=== PATIENT | male | born 1960 | race Caucasian/White ===

== ENCOUNTER 2016-07-23 19:25 | Emergency (ER) | payer OTHER ==
[~2016-07-23] VITALS: Ht 167.6 cm; Wt 80.0 kg
[2016-07-23 19:45] VITALS: Ht 167.6 cm; Wt 80.0 kg
[2016-07-23] MEDS ORDERED: KETOROLAC 15 MG INJ IM STA (21:41)
[2016-07-23 21:48] LABS: URINE BLOOD (Dip) POC Trace-intact (NEGATIVE)
[2016-07-23] MEDS ORDERED: DIAZEPAM 5 MG TAB PO ONE (22:00)
--- NOTE | 2016-07-23 23:21 | ERD ---
ER Documentation Chief Complaint Date/Time DATE: 07/23/16 TIME: 23:16 Chief Complaint left flank pain x 3 days HPI Pleasant 55-year-old, Arabic-speaking, male patient presenting to emergency department with complaints of left lumbar pain radiating to left abdomen. Pain started 3 days ago is described as throbbing. Patient states pain is 7/10 on pain scale, denies any injury, denies nausea vomiting fever chills, denies dysuria or alteration in bowel or bladder, denies difficulty ambulating. Past medical history includes a right inguinal hernia repair. Patient denies any history of GERD or heartburn. Denies any history of nephrolithiasis or diverticulitis. ROS All systems reviewed and are negative except as per history of present illness. Medications Home Meds Active Scripts Diazepam* (Valium*) 5 Mg Tablet, 5 MG PO Q8, #10 TAB Prov:MARKUS,AZAR 07/23/16 Ibuprofen* (Motrin*) 600 Mg Tab, 600 MG PO Q6, #30 TAB Prov:MARKUS,AZAR 07/23/16 Allergies Allergies: Coded Allergies: No Known Drug Allergies (Verified Allergy, Unknown, 07/23/16) PMhx/Soc History of Surgery: Yes (abdominal hernia 15 y ago) Anesthesia Reaction: No Hx Neurological Disorder: No Hx Respiratory Disorders: No Hx Cardiac Disorders: No Hx Psychiatric Problems: No Hx Miscellaneous Medical Probl: No Hx Alcohol Use: No Hx Substance Use: No Hx Tobacco Use: No Smoking Status: Never smoker Physical Exam Vitals Vital Signs Date Time Temp Pulse Resp B/P Pulse Ox O2 Delivery O2 Flow Rate FiO2 07/23/16 23:32 98.7 62 18 120/79 99 Room Air 07/23/16 19:45 97.0 73 20 125/62 98 Vitals stable, triage notes reviewed Physical Exam Const: [] Head: Atraumatic Eyes: Normal Conjunctiva ENT: Normal External Ears, Nose and Mouth. Neck: Full range of motion..~ No meningismus. Resp: Clear to auscultation bilaterally Cardio: Regular rate and rhythm, no murmurs Abd: Soft, non tender, non distended. Normal bowel sounds Skin: No petechiae or rashes Back: No midline or flank tenderness Ext: No cyanosis, or edema Neur: Awake and alert Psych: Normal Mood and Affect Results 24 hrs Laboratory Tests Test 07/23/16 21:47 Bedside Urine pH (LAB) 7.0 Bedside Urine Protein (LAB) Negative Bedside Urine Glucose (UA) 0.1% Bedside Urine Ketones (LAB) Negative Bedside Urine Blood Trace-intact Bedside Urine Nitrite (LAB) Negative Bedside Urine Leukocyte Esterase (L Negative Current Medications Medications (Trade) Dose Ordered Sig/Alena Route PRN Reason Start Time Stop Time Status Last Admin Dose Admin Ketorolac Tromethamine (Toradol) 15 mg ONCE STAT IM 07/23/16 21:41 07/23/16 21:44 DC 07/23/16 21:50 Diazepam (Valium) 5 mg ONCE ONCE PO 07/23/16 22:00 07/23/16 22:01 DC 07/23/16 21:50 Interpretation text Trace microscopic hematuria, this can be a normal finding or suggestive of nephrolithiasis plan to treat with fluids and pain control. Procedures/MDM This pleasant 55-year-old male patient presenting to emergency department with left flank pain radiating to abdomen, pain is throbbing, 7/10 on pain scale. Patient denies any history of injury, patient responded to treatment with Toradol and Valium decreasing to less than 5/10 on pain scale urinalysis positive for trace microscopic hematuria. Findings can be consistent with nephrolithiasis. Patient denies any nausea or vomiting, denies difficulty with urinary output, denies problems initiating urine stream, denies dribbling after straining. Patient denies hematuria or fever. I feel patient is an appropriate candidate for outpatient treatment and follow-up with primary care physician. I feel the patient is stable for discharge at this time. I have discussed results, examination findings, the treatment plan with the patient and family present prior to discharge. Indications for emergent reevaluation, side effects of medication were also discussed. All questions were answered. Patient verbalizes understanding and agrees with plan of care. Departure Diagnosis: Primary Impression: Flank pain Condition: Good Patient Instructions: Flank Pain, Uncertain Cause [facility] Additional Instructions: Thank you for for coming to [facility] for your care today. Please ask your nurse or provider if you have questions about your care today and do not leave until all your questions have been answered. Please use any medications given as directed and follow-up with your doctor (or the doctor you were referred to) in the next 2-3 days. If you do not have a primary care doctor you may follow up at the [facility] (listed below). You may also use motrin and tylenol as needed for fever and/or pain unless instructed otherwise by your provider or nurse. Indications for more urgent follow-up have been discussed, but you may return to the Emergency Department at ANY time for any worrisome or worsening symptoms. If you have abdominal pain, please know that no test or exam you received is perfect and you should follow up within 8 hours for continued pain. If you had any imaging studies today, such as an X-Ray or CT Scan, these studies will be reviewed later by a radiologist. You will be called if there are important findings that were not identified today, so make sure the contact information you provided at registration is correct. If you received any narcotic pain control medicine today, such as Vicodin, Morphine or Dilaudid, your coordination and judgment may be affected for a number of hours. Please do not drive or operate heavy machinery, and you may want someone to assist you at home. If you were given a prescription for narcotic medication, be aware that it is very addictive- use sparingly and only if necessary. AZAR APARICIO Jul 23, 2016 23:21
[2016-07-23] MEDS ORDERED: IBUP-1542 PO (23:22)
[2016-07-23] MEDS ORDERED: DIAZ-90 PO (23:22)
[2016-07-23 23:32] VITALS: BP 120/79; PULSE 62; RESP 18; TEMP 98.7
== END 2016-07-23 23:30 | disposition home or self-care (01) ==
LOC: FTE 19:25
DX: R10.9 Unspecified abdominal pain (principal)
CPT/HCPCS: 81003; 96372; J1885; Z7502; Z7610

== ENCOUNTER 2017-03-17 21:25 | Emergency (ER) | payer OTHER ==
[~2017-03-17] VITALS: Ht 167.6 cm; Wt 76.8 kg
[~2017-03-17 21:25] MED LIST: DIAZ-90 PO; IBUP-1542 PO
[2017-03-17 21:30] VITALS: Ht 167.6 cm; Wt 76.8 kg
--- NOTE | 2017-03-17 23:51 | ERD ---
ER Documentation Chief Complaint Chief Complaint vomiting x 1 day, denies abd pain HPI 56-year-old male who presents emergency department for vomiting for 1 day. Stated that he has dizziness and he feels like his surroundings moving this morning. Denies headache, head injury, throat pain, difficulty swallowing, neck pain, neck stiffness, shoulder pain, chest pain, back pain, abdominal pain, vomiting, constipation, diarrhea, urinary symptoms, loss of bowel bladder control, recent long travel, recent exposure to any illness, changes in bowel and bladder habits , difficulty walking, numbness or tingling sensation, unilateral weakness, fever , chills. No known drug allergies. Past medical history of diabetes, hyperlipidemia. Surgery: Hernia surgery. Medication: Metformin. 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 Denies smoking, use of alcoholic beverages, use of illegal drugs. ROS All systems reviewed and are negative except as per history of present illness. Medications Home Meds Active Scripts Famotidine* (Pepcid*) 20 Mg Tablet, 20 MG PO DAILY for 30 Days, TAB Prov:KATHEILAJENNIFERMONIQUE F 03/18/17 Ondansetron Hcl* (Zofran*) 4 Mg Tablet, 4 MG PO Q8H Y for NAUSEA AND/OR VOMITING , #30 TAB Prov:KATHEILABANGAVINAR F 03/18/17 Acetaminophen* (Tylophen*) 500 Mg Capsule, 1 CAP PO Q6H Y for PAIN AND OR ELEVATED TEMP, #20 CAP Prov:PASILABAN,GAVINAR F 03/18/17 Diazepam* (Valium*) 5 Mg Tablet, 5 MG PO Q8, #10 TAB Prov:MARKUS,AZAR 07/23/16 Ibuprofen* (Motrin*) 600 Mg Tab, 600 MG PO Q6, #30 TAB Prov:MARKUS,AZAR 07/23/16 Allergies Allergies: Coded Allergies: No Known Drug Allergies (Verified Allergy, Unknown, 03/17/17) PMhx/Soc History of Surgery: Yes (abdominal hernia 15 y ago) Anesthesia Reaction: No Hx Neurological Disorder: No Hx Respiratory Disorders: No Hx Cardiac Disorders: No Hx Psychiatric Problems: No Hx Miscellaneous Medical Probl: Yes (DM) Hx Alcohol Use: No Hx Substance Use: No Hx Tobacco Use: No Smoking Status: Never smoker Physical Exam Vitals Vital Signs Date Time Temp Pulse Resp B/P Pulse Ox O2 Delivery O2 Flow Rate FiO2 03/18/17 02:48 98.0 83 18 129/81 100 Room Air 03/17/17 21:30 97.0 81 20 125/75 97 Physical Exam Const: [] Head: Atraumatic Eyes: Normal Conjunctiva ENT: Normal External Ears, Nose and Mouth. Neck: Full range of motion..~ No meningismus. Resp: Clear to auscultation bilaterally Cardio: Regular rate and rhythm, no murmurs Abd: Soft, non distended. Normal bowel sounds. Right upper abdominal tenderness and light and deep palpation during inspiration. Skin: No petechiae or rashes Back: No midline or flank tenderness Ext: No cyanosis, or edema Neur: Awake and alert Psych: Normal Mood and Affect Result Diagram: 03/17/17235403/17/172354 Results 24 hrs Laboratory Tests Test 03/17/17 23:48 03/17/17 23:55 Urine Color YELLOW Urine Clarity CLEAR Urine pH 7.0 Urine Specific Stearns 1.026 Urine Ketones 1+mg/dL Urine Nitrite NEGATIVEmg/dL Urine Bilirubin NEGATIVEmg/dL Urine Urobilinogen NEGATIVEmg/dL Urine Leukocyte Esterase NEGATIVELeu/ul Urine Microscopic RBC 5/HPF Urine Microscopic WBC 3/HPF Urine Renal Epithelial Cells FEW/HPF Urine Mucus MANY/HPF Urine Hemoglobin NEGATIVEmg/dL Urine Glucose NEGATIVEmg/dL Urine Total Protein 1+mg/dl White Blood Count 7.610^3/ul Red Blood Count 4.8810^6/ul Hemoglobin 14.5g/dl Hematocrit 42.9% Mean Corpuscular Volume 87.9fl Mean Corpuscular Hemoglobin 29.7pg Mean Corpuscular Hemoglobin Concent 33.8g/dl Red Cell Distribution Width 12.1% Platelet Count 41250^3/UL Mean Platelet Volume 10.7fl Neutrophils % 82.5% Lymphocytes % 13.7% Monocytes % 2.7% Eosinophils % 0.4% Basophils % 0.4% Nucleated Red Blood Cells % 0.0/100WBC Neutrophils # 6.310^3/ul Lymphocytes # 1.110^3/ul Monocytes # 0.210^3/ul Eosinophils # 0.010^3/ul Basophils # 0.010^3/ul Nucleated Red Blood Cells # 0.010^3/ul Prothrombin Time 14.1Sec Prothrombin Time Ratio 1.1 INR International Normalized Ratio 1.09 Activated Partial Thromboplast Time 26.7Sec Sodium Level 143mmol/L Potassium Level 4.2mmol/L Chloride Level 104mmol/L Carbon Dioxide Level 29mmol/L Anion Gap 14 Blood Urea Nitrogen 13mg/dl Creatinine 0.80mg/dl Glucose Level 144mg/dl Calcium Level 9.6mg/dl Total Bilirubin 0.5mg/dl Direct Bilirubin 0.00mg/dl Indirect Bilirubin 0.5mg/dl Aspartate Amino Transf (AST/SGOT) 29IU/L Alanine Aminotransferase (ALT/SGPT) 41IU/L Alkaline Phosphatase 61IU/L Troponin I < 0.012ng/ml Total Protein 7.9g/dl Albumin 4.4g/dl Globulin 3.50g/dl Albumin/Globulin Ratio 1.25 Amylase Level 71U/L Lipase 45U/L Current Medications Medications (Trade) Dose Ordered Sig/Alena Route PRN Reason Start Time Stop Time Status Last Admin Dose Admin Meclizine HCl (Antivert) 25 mg ONCE ONCE PO 03/18/17 00:00 03/18/17 00:01 DC 03/17/17 23:49 Ondansetron HCl (Zofran Odt) 4 mg ONCE STAT ODT 03/18/17 00:07 03/18/17 00:09 DC Ondansetron HCl 4 mg 4 mg ONCE STAT IV 03/18/17 00:25 03/18/17 00:28 DC 03/18/17 00:34 Sodium Chloride (NS) 1,000 ml @ 1,000 mls/hr Q1H ONCE IV 03/18/17 00:30 03/18/17 01:29 DC 03/18/17 00:34 IV Flush 10 ml 10 ml STK-MED ONCE .ROUTE 03/18/17 01:07 03/18/17 01:08 DC 03/18/17 01:16 Sodium Chloride (NS) 100 ml @ ud STK-MED ONCE .ROUTE 03/18/17 01:07 03/18/17 01:08 DC 03/18/17 01:16 Iohexol (Omnipaque 300mg/ ml) 150 ml STK-MED ONCE .ROUTE 03/18/17 01:07 03/18/17 01:08 DC 03/18/17 01:16 Procedures/MDM 56-year-old male who presents emergency department for vomiting for 1 day. Stated that he has dizziness and he feels like his surroundings moving this morning. Denies headache, head injury, throat pain, difficulty swallowing, neck pain, neck stiffness, shoulder pain, chest pain, back pain, abdominal pain, vomiting, constipation, diarrhea, urinary symptoms, loss of bowel bladder control, recent long travel, recent exposure to any illness, changes in bowel and bladder habits , difficulty walking, numbness or tingling sensation, unilateral weakness, fever , chills. No known drug allergies. Past medical history of diabetes, hyperlipidemia. Surgery: Hernia surgery. Medication: Metformin. 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 Denies smoking, use of alcoholic beverages, use of illegal drugs. Physical exam: Unremarkable. Romberg test negative. Cranial nerves II through XII are intact. Active bowel sounds. There is no left upper/left lower abdominal tenderness and light and deep palpation. Negative on Rovsing sign. Negative on psoas sign. Negative on Adrian sign. Able to jump 3 times without developing abdominal pain. No CVA tenderness. Ambulatory with steady gait and without difficulty and without pain to abdomen. No neurovascular deficits. Patient and family member agreed with the diagnostic test, treatment, plan of care. EKG: Normal sinus rhythm with a ventricular rate of 70 bpm. No STEMI. Read by supervising emergency room physician, Dr. Manish Trent. Blood works: Reviewed. Urinalysis: Reviewed. Abdominal ultrasound/right upper quadrant: No ultrasound evidence for cholelithiasis, cholecystitis or biliary obstruction. Pancreas obscured by bowel gas. Echogenic nonshadowing focus within the right kidney, possibly an incidental artifact from vascular interface versus small angiomyolipoma. CT of the abdomen and pelvis with IV contrast: Hepatic steatosis. Mild small bowel and colonic thickening suggestive of enterocolitis without obstruction. No CT evidence for appendicitis. Mildly prominent heterogenous prostate. L4-5 spondylolisthesis (20%). Recent diagnostic test results was discussed with supervising emergency room physician, Dr. Manish Trent who agreed with my medical decision making to discharge patient and have the patient follow-up with his primary care physician in the next 24-48 hours. Treatment: Antivert. Zofran. P.o. challenge. IV insertion. Zofran IV. Normal saline IV. Reevaluation: Denies headache, dizziness, blurred vision, neck pain, shoulder pain, chest pain, abdominal pain, nausea, vomiting. No episode of emesis here in the emergency department. There is no right upper/right lower/epigastric/ left upper/left lower abdominal tenderness and light and deep palpation. Negative on Rovsing sign. Negative Adrian sign. Negative and psoas sign. No CVA tenderness. Ambulatory with steady gait and without difficulty and without abdominal pain. No neurological deficits. Differential diagnosis: Stroke versus subarachnoid hemorrhage versus DKA versus vertigo versus cholecystitis versus pancreatitis versus dizziness versus viral syndrome versus UTI Final diagnosis: Gastroenteritis. Prescription: Tylenol. Pepcid. Zofran. Follow-up with primary care physician the next 24-48 hours. PCP to refer patient to neurologist if symptoms persist in the next 24-48 hours. Come back in the emergency department for any new symptoms or any worsening symptoms. All questions and concerns are answered. Patient and family member verbalized understanding and agreed with the plan of care. Hemodynamically stable on discharge. Departure Diagnosis: Primary Impression: Gastroenteritis Condition: Stable Additional Instructions: Follow-up with primary care physician the next 24-48 hours. PCP to refer patient to neurologist if symptoms persist in the next 24-48 hours. Come back in the emergency department for any new symptoms or any worsening symptoms. All questions and concerns are answered. Patient and family member verbalized understanding and agreed with the plan of care. MONIQUE GARCIA Mar 17, 2017 23:51
[2017-03-18] MEDS ORDERED: MECLIZINE 12.5 MG TAB PO ONE
[2017-03-18] MEDS ORDERED: ONDANSETRON (ODT) 4 MG TAB ODT STA (00:07)
[2017-03-18 00:09] LABS: BASOPHILS % 0.4 % (0.0-2.0); EOSINOPHILS % 0.4 % (0.0-7.0); HEMATOCRIT 42.9 % (42.0-52.0); HEMOGLOBIN 14.5 g/dl (14.0-18.0); LYMPHOCYTES # 1.1 10^3/ul (0.8-2.9); LYMPHOCYTES % 13.7 % (15.0-51.0); MEAN CORPUSCULAR HEMOGLOBIN 29.7 pg (29.0-33.0); MEAN CORPUSCULAR HGB CONC 33.8 g/dl (32.0-37.0); MEAN CORPUSCULAR VOLUME 87.9 fl (82.0-101.0); MEAN PLATELET VOLUME 10.7 fl (7.4-10.4); MONOCYTE # 0.2 10^3/ul (0.3-0.9); MONOCYTES % 2.7 % (0.0-11.0); NEUTROPHIL # 6.3 10^3/ul (1.6-7.5); NEUTROPHILS % 82.5 % (39.0-77.0); PLATELET COUNT 172 10^3/UL (140-415); RED BLOOD COUNT 4.88 10^6/ul (4.70-6.10); RED CELL DISTRIBUTION WIDTH 12.1 % (11.5-14.5); WHITE BLOOD COUNT 7.6 10^3/ul (4.8-10.8)
[2017-03-18 00:25] LABS: ALANINE AMINOTRANSFERASE 41 IU/L (13-69); ALBUMIN 4.4 g/dl (3.3-4.9); ALBUMIN/GLOBULIN RATIO 1.25; ALKALINE PHOSPHATASE 61 IU/L (42-121); AMYLASE 71 U/L (11-123); ANION GAP 14 (8-16); ASPARTATE AMINO TRANSFERASE 29 IU/L (15-46); BILIRUBIN,INDIRECT 0.5 mg/dl (0-1.1); BILIRUBIN,TOTAL 0.5 mg/dl (0.2-1.3); BLOOD UREA NITROGEN 13 mg/dl (7-20); CALCIUM 9.6 mg/dl (8.4-10.2); CARBON DIOXIDE 29 mmol/L (21-31); CHLORIDE 104 mmol/L (97-110); GLUCOSE 144 mg/dl (70-220); POTASSIUM 4.2 mmol/L (3.5-5.1); SODIUM 143 mmol/L (135-144); TOTAL PROTEIN 7.9 g/dl (6.1-8.1)
[2017-03-18] MEDS ORDERED: ONDANSETRON 4 MG INJ IV STA (00:25)
[2017-03-18] MEDS ORDERED: SOD CHLORIDE 0.9% 1,000 ML IV ONE (00:30)
[2017-03-18 00:31] LABS: ADD UMIC YES; UR ASCORBIC ACID NEGATIVE (NEGATIVE); UR BILIRUBIN (Dip) NEGATIVE (NEGATIVE); UR BLOOD (Dip) NEGATIVE (NEGATIVE); UR CLARITY CLEAR (CLEAR); UR COLOR YELLOW (YELLOW); UR GLUCOSE (Dip) NEGATIVE (NEGATIVE); UR KETONES (Dip) 1+ mg/dL (NEGATIVE); UR LEUKOCYTE ESTERASE (Dip) NEGATIVE Leu/ul (NEGATIVE); UR MUCUS MANY /HPF (NONE SEEN); UR NITRITE (Dip) NEGATIVE (NEGATIVE); UR RBC 5 /HPF (0-5); UR RENAL EPITHELIAL CELL FEW /HPF (NONE SEEN); UR SPECIFIC GRAVITY (Dip) 1.026 (1.003-1.030); UR TOTAL PROTEIN (Dip) 1+ mg/dl (NEGATIVE); UR UROBILINOGEN (Dip) NEGATIVE (NEGATIVE)
[2017-03-18 00:39] LABS: INR 1.09; PROTIME 14.1 Sec (12.2-14.2); PT RATIO 1.1
[2017-03-18 00:40] LABS: PARTIAL THROMBOPLASTIN TIME 26.7 Sec (25.0-35.0)
[2017-03-18 01:05] LABS: TROPONIN-I < 0.012 ng/ml (0.00-0.12)
[2017-03-18] MEDS ORDERED: SOD CHLORIDE 0.9% 100 ML ONE (01:07)
[2017-03-18] MEDS ORDERED: IOHEXOL 300MG/ML 150 ML BTL ONE (01:07)
--- NOTE | 2017-03-18 01:40 | RADRPT ---
PROCEDURE: US Abdomen (right upper quadrant). CLINICAL INDICATION: Pain. TECHNIQUE: Multiple real-time longitudinal and transverse images of the right upper quadrant of th e abdomen were acquired utilizing a curved array transducer. Images were reviewed on a high-resoluti on PACS workstation. COMPARISON: None FINDINGS: The liver is normal in size and echogencity. There is no focal intrahepatic mass.. The gallbladder is normal. There is no pericholecystic fluid or gallbladder wall thickening or gallstones. No intr a or extrahepatic biliary dilatation is seen. The common bile duct measures 3.2 mm in maximal dimen doris. Pancreas is obscured by bowel gas.. No free fluid is identified. The right kidney measures 11.2 cm in length. Overall renal cortical echogenicity is within normal l imits.. There is a 2 mm nonshadowing echogenic focus in the midpole of the right kidney, possibly a small angiomyolipoma versus vascular interface. There is no perinephric fluid collection. No hydro nephrosis, mass, or calculus is seen. IMPRESSION: 1. No ultrasound evidence for cholelithiasis, cholecystitis or biliary obstruction. 2. Pancreas obscured by bowel gas. 3. Echogenic nonshadowing focus within the right kidney, possibly an incidental artifact from vascu lar interface versus small angiomyolipoma. RPTAT: HMVK .Wesley Maldonado MD, MD Date Time Electronically viewed and signed by .Wesley Maldonado MD, MD on 03/18/2017 01:40 .K/
--- NOTE | 2017-03-18 02:03 | RADRPT ---
PROCEDURE: CT ABDOMEN/PELVIS WITH CONTRAST CLINICAL INDICATION: 56-year-old male with abdominal pain. TECHNIQUE: The study was performed utilizing a [employer] VCT 64-slice CT scanner. Direct axia l sections were obtained through the abdomen and pelvis with the use of 100 cc of Omnipaque-300 bryan onic intravenous contrast material. Sagittal and coronal reformations were obtained. One or more of the following dose reduction techniques were utilized: automated exposure control, adjustment of the mA and/or kV according to patient's size and/or use of iterative reconstruction technique. DICOM im ages are available. The images were reviewed on a PACS workstation. CTD/vol = 10.6 mGy; Total Exam DLP = 631.7 mGy-cm. COMPARISON: Right upper quadrant ultrasound March 18, 2017. FINDINGS: The lung bases are unremarkable. There is no evidence for significant pleural effusion. The liver has a normal size and contour. There is mild diffuse decreased density throughout the liver consiste nt with fatty infiltration but without focal areas of abnormal density or contrast enhancement. Ther e is a small calcific density adjacent to the periphery of the inferior right lobe of the liver on a xial image 3-44 measuring 7 x 5 mm. No intrahepatic nor extrahepatic biliary ductal dilatation is se en. The gallbladder demonstrates no wall thickening nor pericholecystic fluid. No biliary stones are evident. The pancreas is without areas of abnormal attenuation or contrast enhancement. This splee n is identified and has a normal size without abnormal density or contrast enhancement. The adrenal glands are unremarkable. The kidneys are functional bilaterally without abnormal density. No hydrour eteronephrosis nor nephroureterolithiasis is evident. The urinary bladder contains urine. There is mild thickening of the small bowel without obstruction. There is mild thickening of the transverse, descending and sigmoid colon without obstruction. The appendix is visualized and is without edema o r surrounding inflammatory reaction. The prostate is mildly prominent and heterogeneous measuring ap proximately 4.8 x 4.2 x 4.3 cm. There is no significant free fluid. The aortoiliac vessels are with out aneurysmal dilatation. 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 There is anterolist hesis of L4-L5 of approximately 20% with a vacuum disc, diffuse disc bulge and at least moderate dereje ateral foraminal stenosis. IMPRESSION: 1. Hepatic steatosis. 2. Mild small bowel and colonic thickening suggestive of enterocolitis without obstruction. 3. No CT evidence for appendicitis. 4. Mildly prominent heterogeneous prostate. 5. L4-5 spondylolisthesis (20%). .Angel Haas MD, Date Time Electronically viewed and signed by .Angel Haas MD, on 03/18/2017 02:03 .M/
[2017-03-18] MEDS ORDERED: ONDA4TAB8 PO (02:38)
[2017-03-18] MEDS ORDERED: ACET500C5 PO (02:38)
[2017-03-18] MEDS ORDERED: FAMO-96 PO (02:39)
[2017-03-18 02:48] VITALS: BP 129/81; PULSE 83; RESP 18; TEMP 98
== END 2017-03-18 02:48 | disposition home or self-care (01) ==
LOC: FTE 21:25
DX: K52.9 Noninfective gastroenteritis and colitis, unspecified (principal); E11.9 Type 2 diabetes mellitus without complications; R10.9 Unspecified abdominal pain; R42 Dizziness and giddiness; Z79.84 Long term (current) use of oral hypoglycemic drugs
CPT/HCPCS: 74177; 76705; 80053; 81001; 82150; 83690; 84484; 85025; 85610; 85730; 93005; J2405; J7030; Q9967; Z7610; 96374